=== PATIENT | female | born 1970 | race Caucasian/White ===

== ENCOUNTER → 2022-10-28 16:31 | Outpatient (CLI) | payer OTHER, SELFPAY ==
[2022-10-28 16:00] LABS: Amphetamine/Metha Screen,Urine Negative ng/ml (<1000)
[2022-10-28 16:01] LABS: Barbiturates Screen,Urine Negative ng/ml (<200)
[2022-10-28 16:02] LABS: Benzodiazepines Screen,Urine Negative ng/ml (<200)
[2022-10-28 16:03] LABS: Cannabinoid Screen,Urine Negative ng/ml (<50); Cocaine Screen,Urine Negative ng/ml (<300)
[2022-10-28 16:04] LABS: Methadone Screen,Urine Negative ng/ml (<300)
[2022-10-28 16:05] LABS: Opiate Screen,Urine Negative ng/ml (<300); Phencyclidine Screen,Urine Negative ng/ml (<25)
== END ==
PROVIDERS: PCP Nurse Practitioner Family; Visit Provider Nurse Practitioner Family
DX: Z79.899 Other long term (current) drug therapy (principal)
CPT/HCPCS: 80305